=== PATIENT | female | born 1950 | race Caucasian/White ===

== ENCOUNTER 2016-08-09 20:36 | Emergency (ER) | payer OTHER ==
[~2016-08-09 20:36] MED LIST: DIAZEPAM5 MG PO; LYRICA100 MG PO
--- NOTE | 2016-08-09 21:07 | ED GENERAL ADULT ---
History of Present Illness General Chief Complaint: General Adult Stated Complaint: URI, ABDM PAIN, FEVER, FLU LIKE SYMPTOMS Source: patient, family Exam Limitations: no limitations Vital Signs & Intake/Output Vital Signs & Intake/Output Vital Signs Date Time Temp Pulse Resp B/P Pulse O2 O2 Flow FiO2 Ox Delivery Rate 08/09 2329 98.9 73 19 138/82 94 Room Air 08/09 2200 95 08/09 2042 97.3 99 22 161/96 91 Room Air ED Intake and Output 08/10 0000 08/09 1200 Intake Total 0 Output Total Balance 0 Intake, Oral 0 Patient 145 lb Weight Allergies Coded Allergies: NO KNOWN ALLERGIES (07/21/15) Reconcile Medications Butalb/Acetaminophen/Caffeine (Fioricet 50-300-40 MG Capsule) 50 MG-300 MG-40 MG CAPSULE 1-2 TAB PO Q6H PRN HEADACHE Diazepam 5 MG TAB 1 TAB PO BID PRN SLEEP (Reported) Metoclopramide HCl (Reglan) 10 MG TABLET 1 TAB PO 4 TIMES/DAY PRN nausea/ headache Pregabalin (Lyrica) 100 MG CAP 1 CAP PO DAILY PAIN (Reported) Promethazine HCl 25 MG TABLET 1 TAB PO Q6P PRN nausea Tramadol HCl 50 MG TABLET 1-2 TAB PO Q6 PRN pain Triage Note: PER PT TERRIBLE HEADACHE UNABLE TO KEEP ANYTHING DOWN SINCE 0700. PT APPEARS TO TRIAGE LETHARGIC, DIFF WALKING Triage Nurses Notes Reviewed? yes HPI: Patient is a 66-year-old female presents complaining of headache, vomiting, abdominal pain. Headache and vomiting began at 7 AM this morning. Headache is a bandlike pressure pain that is diffuse around her head. Pain is currently 10 out of 10. 9 to 10 episodes of vomiting since onset. Positive photophobia. Patient reports right lower abdominal pain began at approximately 4 PM today. Patient is currently on day 6 of Augmentin for an upper respiratory infection. Patient reports that prior to today she felt that the upper respiratory infection was improving. Patient denies fevers Patient's reports the patient has a history of migraines but it has been at least 5-7 years since she has had a migraine headache. (MOO LINTON,LEA) Past History Travel History Traveled to [place] past 21 day No Medical History Any Pertinent Medical History? 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 No (LEA ROMERO) Review of Systems Review of Systems Constitutional: Reports: malaise. Denies: chills, fever. EENTM: Reports: no symptoms. Respiratory: Denies: cough, short of breath. Cardiovascular: Denies: chest pain. GI: Reports: see HPI, abdominal pain, nausea, vomiting. Genitourinary: Reports: no symptoms. Musculoskeletal: Denies: back pain, neck pain. Skin: Reports: no symptoms. Neurological/Psychological: Reports: see HPI, headache. Hematologic/Endocrine: Reports: no symptoms. Immunologic/Allergic: Reports: no symptoms. (LEA ROMERO) Physical Exam Physical Exam General Appearance: alert, awake Head: atraumatic, normal appearance Eyes: Bilateral: normal appearance, PERRL, EOMI. Ears, Nose, Throat: normal pharynx, normal ENT inspection, hearing grossly normal Neck: normal inspection, supple, full range of motion, NO MENINGEAL SIGNS Respiratory: normal breath sounds, chest non-tender, no respiratory distress, lungs clear Cardiovascular: regular rate/rhythm Gastrointestinal: soft, non-tender Back: normal inspection, normal range of motion Extremities: normal inspection, normal capillary refill, normal range of motion, no edema Neurologic/Psych: no motor/sensory deficits, awake, alert, oriented x 3, normal gait, normal mood/affect Skin: intact, normal color, warm/dry Lymphatic: no anterior cervical sanford Core Measures ACS in differential dx? No CVA/TIA Diagnosis: No Severe Sepsis Present: No Septic Shock Present: No (LEA ROMERO) Progress Differential Diagnoses I considered the following diagnoses in my evaluation of the patient: Plan of Care: Orders Procedure Date/time Status COMPREHENSIVE METABOLIC PANEL 08/09 2116 Complete CBC WITHOUT DIFFERENTIAL 08/09 2116 Complete EKG 08/09 2043 Active Laboratory Tests 08/09/162132: Anion Gap 8, Estimated GFR > 60, BUN/Creatinine Ratio 21.7, Glucose 112 H, Calcium 8.7, Total Bilirubin 0.6, AST 24, ALT 38, Alkaline Phosphatase 80, Total Protein 6.7, Albumin 3.8, Globulin 2.9, Albumin/Globulin Ratio 1.3, CBC w Diff NO MAN DIFF REQ, RBC 4.38, MCV 90.5, MCH 30.0, RDW 13.2, MPV 8.2, Gran % 81.3 H , Lymphocytes % 13.6 L, Monocytes % 4.6, Eosinophils % 0.2, Basophils % 0.3, Absolute Granulocytes 9.4 H, Absolute Lymphocytes 1.6, Absolute Monocytes 0.5, Absolute Eosinophils 0, Absolute Basophils 0, PUBS MCHC 33.[address] Norman. 08/09/2016 10:40:32 PM: Reglan infiltrated when nurse went to administer the medication IV. Patient reports no improvement in her nausea. Phenergan and Benadryl ordered. Patient ambulatory to the bathroom, appears more alert and awake than on initial exam. 08/09/2016 11:23:21 PM: Patient reports nausea improved after Phenergan and Benadryl, mild improvement in headache. Awaiting results of CT scan. Pain medication ordered. 08/10/2016 12:02:06 AM: Patient reports significant improvement in her headache, nausea, vomiting, abdominal pain. Abdomen reexamined, no tenderness throughout. Patient nontoxic appearing. Results of CT scan discussed with patient and her . Patient appears stable for discharge. (LEA ROMERO) Initial ED EKG: none (LEA ROMERO) Departure Departure Time of Disposition: 0000 Disposition: HOME OR SELF CARE Condition: Stable Clinical Impression Primary Impression: Headache Qualifiers: Headache type: unspecified Headache chronicity pattern: acute headache Intractability: not intractable Qualified Code: R51 - Headache Referrals: NITHYA GARRETT MD (PCP/Family) Additional Instructions: Follow-up with your primary care doctor within 1 week for further evaluation. Return to the emergency department if fevers, pain uncontrollable, unable to stay hydrated, worsening of symptoms. Departure Forms: Customer Survey General Discharge Information Prescriptions: Current Visit Scripts Metoclopramide HCl (Reglan) 1 TAB PO 4 TIMES/DAY PRN nausea/headache #12 TAB Butalb/Acetaminophen/Caffeine (Fioricet 50-300-40 MG Capsule) 1-2 TAB PO Q6H PRN HEADACHE #15 TAB Promethazine HCl 1 TAB PO Q6P PRN nausea #15 TAB Tramadol HCl 1-2 TAB PO Q6 PRN pain #15 TAB (LEA ROMERO) PA/GERIATRICIAN Co-Sign Statement Statement: ED Attending supervision documentation- x I saw and evaluated the patient. I have also reviewed all the pertinent lab results and diagnostic results. I agree with the findings and the plan of care as documented in the PA's/GERIATRICIAN's documentation. [] I have reviewed the ED Record and agree with the PA's/GERIATRICIAN's documentation. [] Additions or exceptions (if any) to the PAs/GERIATRICIAN's note and plan are summarized below: [] (JOSE TOM,TAVO) Critical Care Note Critical Care Note Critical Care Time: non-applicable (LEA ROMERO)
[2016-08-09 21:49] LABS: ABSOLUTE BASOPHIL COUNT 0 /CUMM (0.0-0.2); ABSOLUTE EOSINOPHIL COUNT 0 /CUMM (0.0-0.7); ABSOLUTE GRANULOCYTE CT 9.4 /CUMM (1.4-6.5); ABSOLUTE LYMPH COUNT 1.6 /CUMM (1.2-3.4); ABSOLUTE MONOCYTE COUNT 0.5 /CUMM (0.10-0.60); BASOPHIL % 0.3 % (0.0-2.0); EOSINOPHIL % 0.2 % (0-5); GRANULOCYTE % 81.3 % (42.2-75.2); HEMATOCRIT 39.6 % (37-47); MEAN CORPUSCULAR HGB CONC 33.1 G/DL (33.0-37.0); MEAN CORPUSCULAR VOLUME 90.5 FL (81.0-99.0); MEAN PLATELET VOLUME 8.2 FL (7.4-10.4); PLATELET COUNT 295 /CUMM (130-400); RBC DISTRIBUTION WIDTH 13.2 % (11.5-14.5); RED BLOOD CELL CT 4.38 /CUMM (4.20-5.40); WHITE BLOOD CELL COUNT 11.5 /CUMM (4.8-10.8)
[2016-08-09 23:29] VITALS: BP 138/82
--- NOTE | 2016-08-09 23:46 | CT SCAN REPORT ---
EXAMINATION: CT HEAD WITHOUT CONTRAST CLINICAL INFORMATION: Severe headache. Vomiting. COMPARISON: None TECHNIQUE: Contiguous axial imaging was performed from the skull base to vertex without intravenous administration of contrast. FINDINGS: There is no evidence of acute intracranial hemorrhage or territorial infarction. No abnormal mass effect or midline shift is seen. Dowd to white matter differentiation is well preserved. No extra-axial fluid collections are identified. The ventricles are normal in size. There is no abnormal attenuation within the brain parenchyma. The osseous structures and soft tissues are normal. Air-fluid level on the right maxillary sinus. Mastoid air cells and middle ear cavities are normally aerated. IMPRESSION: No acute intracranial pathology. Air-fluid level in the right maxillary sinus.
[2016-08-10] MEDS ORDERED: REGLAN10 M1 PO (00:01)
[2016-08-10] MEDS ORDERED: FIORICET 50-301 EACH PO (00:01)
[2016-08-10] MEDS ORDERED: PROMETHAZINE HC25 M3 PO (00:13)
[2016-08-10] MEDS ORDERED: TRAMADOL HCL50 M1 PO (00:13)
== END 2016-08-10 00:25 ==
LOC: ERH 20:36
PROVIDERS: Physician Assistant
DX: R51 Headache (principal)
CPT/HCPCS: 93005; 93010; 96361; 96365; 96375; J1200; J2550; J2765